=== PATIENT | female | born 1990 ===

== ENCOUNTER 2018-07-18 05:36 | Inpatient (IN) | payer BC ==
[2018-07-18] MEDS ORDERED: Ondansetron PF 4 MG/2 ML Vial IVP PRN ×3 (06:01→09:02)
[2018-07-18] MEDS ORDERED: Bicitra 30 ML UDCUP PO SCH (06:01)
[2018-07-18] MEDS ORDERED: Promethazine HCl 25 MG/ML VIAL IM PRN ×2 (06:01→08:05)
[2018-07-18] MEDS ORDERED: Zolpidem Tartrate 5 MG TAB PO PRN ×2 (06:01→09:02)
[2018-07-18] MEDS ORDERED: CEFAZOLIN/Water 2 GM/20 ML SYRINGE SLOW IVP SCH (06:01)
[2018-07-18] MEDS ORDERED: Lactated Ringer's 1,000 ML IV SCH ×2 (06:01→09:15)
[2018-07-18] MEDS ORDERED: Penicillin G Potassium 5 MILL.UNITS in Sodium Chloride 0.9% 100 ML IVPB SCH (06:01)
[2018-07-18 06:24] VITALS: BMI 30.4
[2018-07-18] MEDS ORDERED: CEFAZOLIN 2 GM/50 ML-DEXTROSE 2 GM in Premix Bag 1 BAG IVPB SCH (06:30)
[2018-07-18 06:57] LABS: Hemoglobin 13.6 g/dL (12.0-16.0); Mean Corpuscular HGB CONC 34.6 g/dL (32.0-36.0); Mean Corpuscular Hemoglobin 30.8 pg (27.0-31.0); Platelet Count 323 thou/uL (130-400); RBC Distribution Width 11.8 % (11.5-14.5); Red Blood Cell (RBC) Count 4.42 mill/uL (4.20-5.40); White Blood Cell (WBC) Count 13.6 thou/uL (4.8-10.8)
[2018-07-18] MEDS ORDERED: Morphine PF 1 MG/ML SYR ONE (07:06)
[2018-07-18] MEDS ORDERED: Oxytocin 10 UNITS/ML VIAL ONE ×2 (07:06→08:22)
[2018-07-18 07:28] LABS: Syphilis Antibody Nonreactive (Nonreactive); Syphilis Antibody Index 0.04 S/CO (<1.00 Non-Reactive)
[2018-07-18] MEDS ORDERED: PHENYLEPHRINE-NS 100 MCG/ML 10 ML SYRINGE ONE ×2 (07:38→13:51)
[2018-07-18] MEDS ORDERED: Glycopyrrolate 0.2 MG/ML 5 ML SYRINGE ONE ×2 (07:44→13:51)
[2018-07-18 07:53] LABS: HBSAg Index 0.21 S/CO (0-0.99); Hep B Surf Ag Non-Reactive S/CO (NonReactive)
[2018-07-18] MEDS ORDERED: Ondansetron HCl/PF 4 MG/2 ML Vial IVP PRN (08:05)
[2018-07-18] MEDS ORDERED: Meperidine HCl/PF 25 MG/ML VIAL SLOW IVP PRN (08:05)
[2018-07-18] MEDS ORDERED: HYDROmorphone 2 MG/ML VIAL SLOW IVP PRN (08:05)
[2018-07-18] MEDS ORDERED: Eucerin (Mineral Oil/Petrolatum,White) 30 gm Jar TOP PRN (08:05)
[2018-07-18] MEDS ORDERED: Naloxone HCl 0.4 mg/ml Vial IV PRN (08:05)
[2018-07-18] MEDS ORDERED: diphenhydrAMINE 50 MG/ML VIAL IVP PRN (08:05)
[2018-07-18] MEDS ORDERED: Ketorolac Tromethamine 30 MG/ML VIAL IVP PRN (08:05)
[2018-07-18] MEDS ORDERED: Promethazine HCl 25 MG SUPP PR PRN (08:05)
[2018-07-18] MEDS ORDERED: L&D-Morphine 4 MG/ML VIAL SLOW IVP PRN (08:05)
[2018-07-18] MEDS ORDERED: Naloxone HCl 0.4 mg/ml Vial IVP PRN ×2 (08:05)
[2018-07-18] MEDS ORDERED: Communication Order-Pharmacy FS SCH (08:15)
[2018-07-18] MEDS ORDERED: Ketorolac Tromethamine 30 MG/ML VIAL IVP SCH (08:15)
[2018-07-18] MEDS ORDERED: diphenhydrAMINE 25 MG CAP PO PRN (09:02)
[2018-07-18] MEDS ORDERED: Lanolin Ointment 7 GM TUBE TOP PRN (09:02)
[2018-07-18] MEDS ORDERED: Simethicone Chewable 80 MG TAB PO PRN (09:02)
[2018-07-18] MEDS ORDERED: Adacel (T-DAP) 0.5 ML SYRINGE IM ONE (09:02)
[2018-07-18] MEDS ORDERED: Acetaminophen 325 MG TAB PO PRN (09:02)
[2018-07-18] MEDS ORDERED: Misoprostol 200 MCG TAB PR PRN (09:02)
[2018-07-18] MEDS ORDERED: Bisacodyl 10 MG SUPP PR PRN (09:02)
[2018-07-18] MEDS ORDERED: NS / Oxytocin 40 units/1000ml 1,000 ML IV SCH (09:15)
[2018-07-18] MEDS: Ferrous Sulfate 325 MG TAB PO SCH (14:28)
[2018-07-18] MEDS: Docusate Calcium (SURFAK) 240 MG CAP PO SCH (19:56)
[2018-07-18] MEDS ORDERED: HYDROcodone/Acetaminophen 5/325 mg Tablet PO PRN ×2 (20:15)
[2018-07-18] MEDS ORDERED: Meperidine HCl/PF 25 MG/ML VIAL IM PRN (20:15)
[2018-07-19 07:41] LABS: Hemoglobin 11.1 g/dL (12.0-16.0); Mean Corpuscular HGB CONC 34.3 g/dL (32.0-36.0); Mean Corpuscular Hemoglobin 31.2 pg (27.0-31.0); Mean Corpuscular Volume 90.8 fL (78.0-98.0); Mean Platelet Volume 6.9 fL (7.4-10.4); Platelet Count 251 thou/uL (130-400); RBC Distribution Width 11.8 % (11.5-14.5); Red Blood Cell (RBC) Count 3.58 mill/uL (4.20-5.40); White Blood Cell (WBC) Count 12.5 thou/uL (4.8-10.8)
[2018-07-19] MEDS: Prenatal Vitamin 1 TAB PO SCH (07:58)
[2018-07-19] MEDS: Ibuprofen 800 MG TAB PO SCH ×3 (07:58→21:26)
[2018-07-19] MEDS: Docusate Calcium (SURFAK) 240 MG CAP PO SCH ×3 (08:02→21:30)
[2018-07-19] MEDS: Ferrous Sulfate 325 MG TAB PO SCH ×2 (08:02→13:56)
--- NOTE | 2018-07-20 00:55 | OP ---
DATE OF PROCEDURE: 07/18/2018 ATTENDING STAFF PHYSICIAN: Marcos Peterson MD. SURGEON: Marcos Peterson MD. RESIDENT SURGEON: Lupe Hernandez MD. PARK GUIDE SURGEON: Alexandrea Hubbard MD. PREOPERATIVE DIAGNOSES: 1. Term intrauterine at 39 weeks. 2. Prior section. 3. Declines trial of labor. POSTOPERATIVE DIAGNOSES: 1. Term intrauterine at 39 weeks. 2. Prior section. 3. Declines trial of labor. PROCEDURE PERFORMED: Repeat low-transverse section. ANESTHESIA: Spinal catheterization. FINDINGS: 1. Minimal scarring and adhesions secondary to previous adhesion prevention measures. 2. Vigorous female, 7 pounds 11 ounces, Apgars 8 and 9. 3. Normal uterus, tubes, and ovaries. COMPLICATIONS: None. SPECIMENS REMOVED: Cord blood. BLOOD LOSS: Approximately 600 mL (QBL 575 mL). DESCRIPTION OF PROCEDURE: After thorough consent and counseling, Mrs. Son was taken to the operating room and an adequate level of anesthesia was obtained via spinal catheterization. The patient was prepped and draped in usual sterile fashion for abdominal surgery. A Herrera was placed in the bladder, which was noted to be draining clear urine. Attention was then turned to performing the repeat low-transverse section. A Pfannenstiel incision was made and the old scar was excised. The incision was carried sharply to the fascia, which was also sharply incised. The midline was identified and the rectus muscles were retracted laterally. The abdominal peritoneal cavity was entered with the usual safeguards carried out. A retractor was placed and the bladder flap was created on the vesicouterine peritoneum. A bladder blade was then placed. A low-transverse incision was made on the well-developed lower uterine segment. Upon entering the amniotic sac, copious amount of clear amniotic fluid was visualized. The was noted to be vertex presentation in the occiput anterior position still high in the pelvis. Head was delivered and baby was bulb suctioned on the abdomen. Shoulders and body were then delivered in an atraumatic fashion. The cord was doubly clamped and cut and the was handed to the Pediatric Team in attendance for the delivery. The was a vigorous viable female, weighing 7 pounds 11 ounces with Apgars of 8 and 9 obtained at 1 and 5 minutes respectively. Cord blood was obtained. The placenta was manually removed from the uterus. The uterus was exteriorized and good tone was noted. The uterine cavity was cleared of any remaining clot and fluid. The low-transverse incision was closed with a running locking ligature of #1 chromic. A second imbricating layer was placed to facilitate strengthened hemostasis. The vesicouterine peritoneum was then reapproximated to the lower segment with running ligature of 3-0 Monocryl. The posterior cul-de-sac and gutters were cleared of clot and fluid. The uterus, fallopian tubes, and ovaries were inspected and noted to be completely normal and no pathology was identified. Seprafilm was applied to the low-transverse incision and to the anterior aspect of the uterus for adhesion prevention. The uterus was returned to the abdomen. Good tone and hemostasis were again appreciated. Lap, sponge, and needle counts were correct. The peritoneum was then closed with a running ligature of 2-0 Vicryl. The rectus muscles were reapproximated in the midline with interrupted ligatures of 2-0 Vicryl and #1 chromic sutures. The fascia was then closed with 2 ligatures of 0 Vicryl suture which were tied in the midline. Good fascial integrity was appreciated. The incision was irrigated with copious amount of warm normal saline. Hemostasis was obtained with Bovie cauterization. The subcutaneous tissue was closed with interrupted ligatures of 2-0 plain. The skin was then closed with a subcuticular stitch of 4-0 Monocryl and dressed with Dermabond. Laps, sponge, and needle counts were correct x3. Estimated blood loss during the surgical procedure was approximately 600 mL (QBL 575 mL). The patient was taken to the recovery room in good condition. Immediately following the surgery, the patient and family were made aware of the surgical procedure and operative findings. Questions answered to their satisfaction. Michelle and her were very appreciative of the care rendered here at [facility] this morning. Job ID: [id number]
[2018-07-20] MEDS: Ibuprofen 800 MG TAB PO SCH ×2 (06:06→13:47)
[2018-07-20] MEDS: Ferrous Sulfate 325 MG TAB PO SCH (07:46)
[2018-07-20 07:59] VITALS: BP 110/72; TEMP 97.6
[2018-07-20] MEDS: Docusate Calcium (SURFAK) 240 MG CAP PO SCH (09:17)
[2018-07-20] MEDS: Prenatal Vitamin 1 TAB PO SCH (09:17)
== END 2018-07-20 14:28 | disposition home or self-care (01) | DRG 788 ==
LOC: L&D 05:36 → 3SW 11:30
PROVIDERS: ADMIT Obstetrics & Gynecology; ATTEND Obstetrics & Gynecology
PROC: 10D00Z1 Extraction of Products of Conception, Low, Open Approach (ICD-10-PCS; principal; 2018-07-18)
PROC: 3E0P05Z Introduction of Adhesion Barrier into Female Reproductive, Open Approach (ICD-10-PCS; 2018-07-18)
DX: O34.211 Maternal care for low transverse scar from previous cesarean delivery (principal); Z3A.39 39 weeks gestation of pregnancy; Z37.0 Single live birth
CPT/HCPCS: 36415; 51702; 85027; 86780; 86850; 86900; 86901; 87340; J1885; J2274; J2540; J2590; J7050